=== PATIENT | male | born 1960 | race Caucasian/White ===

== ENCOUNTER 2017-06-12 18:22 | Inpatient (IN) | payer OTHER ==
[~2017-06-12] VITALS: Ht 182.9 cm; Wt 173.0 kg
[2017-06-12 20:39] LABS: BASOPHIL % 0.2 % (0-2); PLATELET COUNT 282 x10^3mcL (130-400)
[2017-06-12 20:40] LABS: RED CELL DISTRIBUTION WIDTH 15.1 % (11.5-14.5)
[2017-06-12 21:22] LABS: ALBUMIN 3.5 g/dL (3.4-5.0); ALKALINE PHOSPHATASE 105 U/L (46-116); ALT/SGPT 33 U/L (16-63); AST/SGOT 23 U/L (15-37); BILIRUBIN TOTAL 0.62 mg/dL (0.20-1.00); CALCIUM 9.7 mg/dL (8.5-10.1); CARBON DIOXIDE 32.1 mmol/L (21-32); CHLORIDE SERUM 100 mmol/L (98-107); CREATININE SERUM 1.1 mg/dL (0.7-1.3); FREE T4 1.17 ng/dL (0.76-1.46); GFR1 > 60 mL/min; GLUCOSE SERUM 132 mg/dL (74-106); LIPASE 153 IU/L (73-393); MAGNESIUM 2.3 mg/dL (1.8-2.4); POTASSIUM SERUM 3.6 mmol/L (3.5-5.1); SODIUM SERUM 138 mmol/L (136-145); TOTAL PROTEIN, SERUM 7.6 g/dL (6.4-8.2)
[2017-06-12 22:50] LABS: microscopic required? NO
[2017-06-12 23:07] LABS: urine erythrocyte NEGATIVE (NEGATIVE)
[2017-06-12 23:16] LABS: AMPHETAMINE QUAL UR NONE DETECTED (NEG <=1000)
[2017-06-12 23:27] VITALS: BP 133/96
[2017-06-12] MEDS ORDERED: LASIX40 MG (23:40)
[2017-06-12 23:41] VITALS: BP 133/96
[2017-06-12] MEDS ORDERED: HYDROCHLOROTHIA25 MG PO (23:42)
[2017-06-12 23:43] LABS: CHOLESTEROL/HDL RATIO 3.1
[2017-06-12] MEDS ORDERED: METFORMIN HCL500 MG (23:43)
[2017-06-12 23:47] LABS: T3 TOTAL 1.18 ng/mL
[2017-06-12 23:49] LABS: FREE T4 1.22 ng/dL (0.76-1.46); FREE THYROXINE INDEX 3.3 ug/dL (1.4-4.5); T4(THYROXINE) 9.7 ug/dL (4.7-13.3)
[2017-06-12] MEDS ORDERED: LOSARTAN POTASS25 M1 PO (23:49)
[2017-06-12] MEDS ORDERED: ALLOPURINOL100 MG (23:51)
[2017-06-13 05:58] VITALS: BP 117/72
[2017-06-13 07:27] LABS: BASOPHIL % 0.4 % (0-2); PLATELET COUNT 283 x10^3mcL (130-400)
[2017-06-13 07:28] LABS: RED CELL DISTRIBUTION WIDTH 15.1 % (11.5-14.5)
[2017-06-13 07:44] LABS: CALCIUM 8.8 mg/dL (8.5-10.1); CHLORIDE SERUM 103 mmol/L (98-107); GFR1 > 60 mL/min; GLUCOSE SERUM 133 mg/dL (74-106); POTASSIUM SERUM 3.6 mmol/L (3.5-5.1); SODIUM SERUM 140 mmol/L (136-145)
[2017-06-13 09:41] VITALS: BP 127/85
[2017-06-13 14:05] VITALS: BP 118/70
[2017-06-13 17:19] VITALS: BP 140/96
[2017-06-13 18:55] VITALS: BP 128/78
[2017-06-13 21:27] VITALS: BP 138/81
[2017-06-14 05:52] VITALS: BP 111/67
[2017-06-14 06:35] LABS: BASOPHIL % 0.5 % (0-2); PLATELET COUNT 248 x10^3mcL (130-400)
[2017-06-14 06:39] LABS: RED CELL DISTRIBUTION WIDTH 15.2 % (11.5-14.5)
[2017-06-14 10:40] VITALS: BP 91/51
[2017-06-14 13:07] VITALS: BP 133/89
[2017-06-14 17:49] VITALS: BP 138/90
[2017-06-14 20:59] VITALS: BP 134/80
[2017-06-15 04:57] VITALS: BP 114/57
[2017-06-15 06:16] LABS: BASOPHIL % 0.6 % (0-2); PLATELET COUNT 245 x10^3mcL (130-400)
[2017-06-15 06:54] LABS: RED CELL DISTRIBUTION WIDTH 14.7 % (11.5-14.5)
[2017-06-15 09:37] VITALS: BP 129/74; BP 98/49
[2017-06-15 13:11] VITALS: BP 129/74
[2017-06-15] MEDS ORDERED: LASIX40 MG PO (13:14)
[2017-06-15 14:00] VITALS: BP 134/84
== END 2017-06-15 14:37 | disposition home or self-care (01) | DRG 309 ==
LOC: ED 18:22 → DU 22:10
PROVIDERS: Emergency Medicine; Family Medicine; ADMIT Family Medicine Sports Medicine
DX: I49.5 Sick sinus syndrome (principal); E87.2 Acidosis; D68.69 Other thrombophilia; Z68.43 Body mass index [BMI] 50.0-59.9, adult; R00.1 Bradycardia, unspecified; R55 Syncope and collapse; D72.829 Elevated white blood cell count, unspecified; E11.9 Type 2 diabetes mellitus without complications; I10 Essential (primary) hypertension; M10.9 Gout, unspecified; E66.01 Morbid (severe) obesity due to excess calories
CPT/HCPCS: 82962; 83880; 84439; 97110-GP; 97116-GP; 97530-GP; J1885; J7030; J8597; Q0092

== ENCOUNTER 2018-01-06 16:38 | Inpatient (IN) | payer OTHER ==
[~2018-01-06] VITALS: Ht 182.9 cm; Wt 134.9 kg
[~2018-01-06 16:38] MED LIST: ALLOPURINOL100 MG; HYDROCHLOROTHIA25 MG PO; LASIX40 MG; LASIX40 MG PO; LOSARTAN POTASS25 M1 PO; METFORMIN HCL500 MG
[2018-01-06 16:45] VITALS: Ht 182.9 cm; Wt 134.9 kg
[2018-01-06 17:25] LABS: BASOPHIL % 0.4 % (0-2); PLATELET COUNT 289 x10^3mcL (130-400)
[2018-01-06 17:31] LABS: RED CELL DISTRIBUTION WIDTH 15.4 % (11.5-14.5)
[2018-01-06 17:32] LABS: CARBON DIOXIDE 24.2 mmol/L (21-32); CHLORIDE SERUM 105 mmol/L (98-107); CREATININE SERUM 0.8 mg/dL (0.7-1.3); GFR1 > 60 mL/min; GLUCOSE SERUM 98 mg/dL (74-106); POTASSIUM SERUM 4.1 mmol/L (3.5-5.1); SODIUM SERUM 141 mmol/L (136-145)
[2018-01-06 17:37] LABS: ALKALINE PHOSPHATASE 152 U/L (46-116); ALT/SGPT 40 U/L (16-63); AST/SGOT 23 U/L (15-37); BILIRUBIN TOTAL 0.5 mg/dL (0.20-1.00)
[2018-01-06 17:38] LABS: ALBUMIN 3.3 g/dL (3.4-5.0)
[2018-01-06] MEDS ORDERED: POTASSIUM CHLO10 MEQ PO (17:54)
[2018-01-06] MEDS ORDERED: PRILOSEC OTC20 M1 PO (17:55)
[2018-01-06] MEDS ORDERED: ALLOPURINOL300 M1 PO (17:55)
[2018-01-06 18:11] LABS: AMPHETAMINE QUAL UR NONE DETECTED (See below)
[2018-01-06 18:52] LABS: microscopic required? NO
[2018-01-06 19:00] LABS: urine erythrocyte NEGATIVE (NEGATIVE)
[2018-01-06 19:14] LABS: MAGNESIUM 1.9 mg/dL (1.8-2.4); PHOSPHOROUS 3.4 mg/dL (2.5-4.9)
[2018-01-06 19:17] LABS: CHOLESTEROL/HDL RATIO 2.5
[2018-01-06 19:20] LABS: T3 TOTAL 1.24 ng/mL
[2018-01-06 19:23] LABS: FREE T4 1.16 ng/dL (0.76-1.46); FREE THYROXINE INDEX 2.6 ug/dL (1.4-4.5)
[2018-01-06] MEDS ORDERED: VITAMIN E400 UNIT PO (19:47)
[2018-01-06] MEDS ORDERED: FERROUS SULFAT325 M2 PO (19:48)
[2018-01-06] MEDS ORDERED: VITAMIN C500 M6 PO (19:48)
[2018-01-06 19:49] VITALS: BP 130/90
[2018-01-07 05:41] VITALS: BP 113/72
[2018-01-07 06:03] LABS: BASOPHIL % 0.8 % (0-2); PLATELET COUNT 236 x10^3mcL (130-400)
[2018-01-07 06:25] LABS: CALCIUM 9.3 mg/dL (8.5-10.1); CARBON DIOXIDE 25.8 mmol/L (21-32); CHLORIDE SERUM 109 mmol/L (98-107); CREATININE SERUM 0.8 mg/dL (0.7-1.3); GFR1 > 60 mL/min; GLUCOSE SERUM 88 mg/dL (74-106); MAGNESIUM 1.8 mg/dL (1.8-2.4); PHOSPHOROUS 3.7 mg/dL (2.5-4.9); SODIUM SERUM 144 mmol/L (136-145)
[2018-01-07 06:47] LABS: RED CELL DISTRIBUTION WIDTH 14.8 % (11.5-14.5)
[2018-01-07 09:16] VITALS: BP 134/78
[2018-01-07 09:30] VITALS: BP 119/82
[2018-01-07 12:41] VITALS: BP 117/78
[2018-01-07] MEDS ORDERED: MECLIZINE HCL12.5 MG PO (13:05)
[2018-01-07 13:31] VITALS: BP 117/78
[2018-01-07] MEDS ORDERED: OMEPRAZOLE20 M3 PO (16:15)
[2018-01-07] MEDS ORDERED: IBUPROFEN400 MG PO (16:25)
[2018-01-07 17:40] VITALS: BP 139/84
== END 2018-01-07 18:23 | disposition home or self-care (01) | DRG 205 ==
LOC: ED 16:38 → DU 18:23
PROVIDERS: Emergency Medicine; Family Medicine
DX: M94.0 Chondrocostal junction syndrome [Tietze] (principal); N17.0 Acute kidney failure with tubular necrosis; E44.1 Mild protein-calorie malnutrition; Z68.41 Body mass index [BMI] 40.0-44.9, adult; G90.8 Other disorders of autonomic nervous system; I10 Essential (primary) hypertension; G47.33 Obstructive sleep apnea (adult) (pediatric); R74.0 Nonspecific elevation of levels of transaminase and lactic acid dehydrogenase [LDH]; E66.01 Morbid (severe) obesity due to excess calories; Z98.84 Bariatric surgery status; E04.1 Nontoxic single thyroid nodule; D72.829 Elevated white blood cell count, unspecified
CPT/HCPCS: 82962; 83880; 84439; J7030; Q0092

== ENCOUNTER 2018-04-24 21:18 | Emergency (ER) | payer OTHER ==
[~2018-04-24] VITALS: Ht 182.9 cm; Wt 128.6 kg
[~2018-04-24 21:18] MED LIST changes: +ALLOPURINOL300 M1 PO; +FERROUS SULFAT325 M2 PO; +IBUPROFEN400 MG PO; +MECLIZINE HCL12.5 MG PO; +OMEPRAZOLE20 M3 PO; +POTASSIUM CHLO10 MEQ PO; +PRILOSEC OTC20 M1 PO; +VITAMIN C500 M6 PO; +VITAMIN E400 UNIT PO
[2018-04-24 22:19] VITALS: BP 112/77
[2018-04-24 23:25] LABS: BASOPHIL % 0.2 % (0-2); PLATELET COUNT 280 x10^3mcL (130-400); RED CELL DISTRIBUTION WIDTH 13.8 % (11.5-14.5)
[2018-04-24 23:35] LABS: ALKALINE PHOSPHATASE 129 U/L (46-116); ALT/SGPT 23 U/L (16-63); AST/SGOT 18 U/L (15-37); BILIRUBIN TOTAL 0.6 mg/dL (0.20-1.00); CARBON DIOXIDE 25.4 mmol/L (21-32); CHLORIDE SERUM 101 mmol/L (98-107); CREATININE SERUM 0.9 mg/dL (0.7-1.3); GFR1 > 60 mL/min; GLUCOSE SERUM 97 mg/dL (74-106); SODIUM SERUM 136 mmol/L (136-145); TOTAL PROTEIN, SERUM 7.3 g/dL (6.4-8.2); URIC ACID 4.2 mg/dL (3.5-7.2)
[2018-04-24 23:37] LABS: ALBUMIN 3.2 g/dL (3.4-5.0)
[2018-04-24 23:38] LABS: CALCIUM 5.6 mg/dL (8.5-10.1)
[2018-04-26] MEDS ORDERED: COLACE100 MG PO (11:58)
[2018-04-26] MEDS ORDERED: NORCO1 TA2 PO (11:58)
== END 2018-04-25 00:19 | disposition home or self-care (01) ==
LOC: ED 21:18
PROVIDERS: Emergency Medicine
DX: L03.114 Cellulitis of left upper limb (principal); E83.51 Hypocalcemia; Z98.890 Other specified postprocedural states; I10 Essential (primary) hypertension
CPT/HCPCS: 36415; A4570

== ENCOUNTER 2018-04-26 09:02 | Inpatient (IN) | payer OTHER ==
[~2018-04-26] VITALS: Ht 182.9 cm; Wt 128.0 kg
[2018-04-26 09:57] LABS: ALKALINE PHOSPHATASE 119 U/L (46-116); ALT/SGPT 19 U/L (16-63); AST/SGOT 14 U/L (15-37); BILIRUBIN TOTAL 0.7 mg/dL (0.20-1.00); CARBON DIOXIDE 23.4 mmol/L (21-32); CREATININE SERUM 0.9 mg/dL (0.7-1.3); GFR1 > 60 mL/min; GLUCOSE SERUM 107 mg/dL (74-106); TOTAL PROTEIN, SERUM 7.3 g/dL (6.4-8.2)
[2018-04-26 10:00] LABS: CALCIUM 5.8 mg/dL (8.5-10.1)
[2018-04-26 10:02] LABS: CHLORIDE SERUM 102 mmol/L (98-107); POTASSIUM SERUM 3.8 mmol/L (3.5-5.1); SODIUM SERUM 135 mmol/L (136-145)
[2018-04-26 10:11] LABS: BASOPHIL % 0.5 % (0-2); PLATELET COUNT 303 x10^3mcL (130-400); RED CELL DISTRIBUTION WIDTH 13.6 % (11.5-14.5)
[2018-04-26] MEDS ORDERED: NORCO1 TA2 PO (11:58)
[2018-04-26] MEDS ORDERED: COLACE100 MG PO (11:58)
[2018-04-26 13:25] VITALS: BP 116/79
[2018-04-26 16:15] VITALS: BP 106/70
[2018-04-26 20:52] VITALS: BP 92/60
[2018-04-27 05:41] VITALS: BP 102/69
[2018-04-27 09:16] VITALS: BP 98/55
[2018-04-27 16:28] VITALS: BP 109/64
[2018-04-27 21:07] VITALS: BP 101/65
[2018-04-28 05:39] VITALS: BP 107/65
[2018-04-28 06:31] LABS: CALCIUM 6.9 mg/dL (8.5-10.1); CARBON DIOXIDE 23.9 mmol/L (21-32); CHLORIDE SERUM 105 mmol/L (98-107); CREATININE SERUM 0.9 mg/dL (0.7-1.3); GFR1 > 60 mL/min; GLUCOSE SERUM 217 mg/dL (74-106); MAGNESIUM 2.5 mg/dL (1.8-2.4); POTASSIUM SERUM 4.6 mmol/L (3.5-5.1); SODIUM SERUM 139 mmol/L (136-145); URIC ACID 3.7 mg/dL (3.5-7.2)
[2018-04-28 07:17] LABS: BASOPHIL % 0.1 % (0-2); PLATELET COUNT 304 x10^3mcL (130-400); RED CELL DISTRIBUTION WIDTH 13.7 % (11.5-14.5)
[2018-04-28 08:40] VITALS: BP 105/73
[2018-04-28 16:13] VITALS: BP 105/69
[2018-04-28 20:25] VITALS: BP 123/83
[2018-04-29 05:33] VITALS: BP 111/71
[2018-04-29 05:56] LABS: CALCIUM 7.1 mg/dL (8.5-10.1); CARBON DIOXIDE 25.5 mmol/L (21-32); CHLORIDE SERUM 104 mmol/L (98-107); CREATININE SERUM 0.9 mg/dL (0.7-1.3); GFR1 > 60 mL/min; GLUCOSE SERUM 153 mg/dL (74-106); MAGNESIUM 2.6 mg/dL (1.8-2.4); POTASSIUM SERUM 4.1 mmol/L (3.5-5.1); SODIUM SERUM 137 mmol/L (136-145)
[2018-04-29 08:24] VITALS: BP 105/66
[2018-04-29 08:24] LABS: BASOPHIL % 0.2 % (0-2); PLATELET COUNT 360 x10^3mcL (130-400); RED CELL DISTRIBUTION WIDTH 12.9 % (11.5-14.5)
[2018-04-29 09:05] LABS: RHEUMATOID ARTHRITIS FACTOR 20.3 IU/mL (0.0-13.9)
[2018-04-29 17:06] VITALS: BP 120/80
[2018-04-29 21:16] VITALS: BP 119/87
[2018-04-30 05:54] VITALS: BP 112/68
[2018-04-30 07:59] VITALS: BP 111/51
[2018-04-30] MEDS ORDERED: CLINDAMYCIN HC300 MG PO (09:05)
[2018-04-30] MEDS ORDERED: PREDNISONE20 MG PO (09:05)
[2018-04-30] MEDS ORDERED: TYLENOL WITH CO1 TA2 PO (09:06)
[2018-04-30 09:31] VITALS: BP 111/51
[2018-04-30 19:05] LABS: COMPLEMENT C3 167 mg/dL (82-167); COMPLEMENT C4 45 mg/dL (14-44)
== END 2018-04-30 11:36 | disposition home or self-care (01) | DRG 546 ==
LOC: ED 09:02 → MU 11:43
PROVIDERS: Internal Medicine Pulmonary Disease; Specialist
DX: M06.9 Rheumatoid arthritis, unspecified (principal); L03.114 Cellulitis of left upper limb; I10 Essential (primary) hypertension; M10.9 Gout, unspecified; E89.0 Postprocedural hypothyroidism; Z98.84 Bariatric surgery status; Z85.850 Personal history of malignant neoplasm of thyroid
CPT/HCPCS: 86431; J1644; J1885; J2405; J2543; J2920; J3010; J3490; J7030; J7050; Q0092; Q9967

== ENCOUNTER 2018-07-06 22:22 | Emergency (ER) | payer OTHER ==
[~2018-07-06] VITALS: Ht 182.9 cm; Wt 129.7 kg
[~2018-07-06 22:22] MED LIST changes: +CLINDAMYCIN HC300 MG PO; +COLACE100 MG PO; +NORCO1 TA2 PO; +PREDNISONE20 MG PO; +TYLENOL WITH CO1 TA2 PO
[2018-07-06 22:36] VITALS: Ht 182.9 cm; Wt 129.7 kg
[2018-07-07 01:20] LABS: CALCIUM 8.7 mg/dL (8.5-10.1); CARBON DIOXIDE 29.7 mmol/L (21-32); CHLORIDE SERUM 101 mmol/L (98-107); CREATININE SERUM 1.1 mg/dL (0.7-1.3); GFR1 > 60 mL/min; GLUCOSE SERUM 157 mg/dL (74-106); POTASSIUM SERUM 4.5 mmol/L (3.5-5.1); SODIUM SERUM 138 mmol/L (136-145)
[2018-07-07 01:22] LABS: BASOPHIL % 0.6 % (0-2)
[2018-07-07 01:23] LABS: PLATELET COUNT 82 x10^3mcL (130-400); RED CELL DISTRIBUTION WIDTH 16.3 % (11.5-14.5)
[2018-07-07 01:24] LABS: ALBUMIN 3.8 g/dL (3.4-5.0); ALKALINE PHOSPHATASE 123 U/L (46-116); ALT/SGPT 24 U/L (16-63); AST/SGOT 15 U/L (15-37); BILIRUBIN TOTAL 0.83 mg/dL (0.20-1.00); URIC ACID 4.2 mg/dL (3.5-7.2)
[2018-07-07 04:00] VITALS: BP 136/81
== END 2018-07-07 04:00 | disposition home or self-care (01) ==
LOC: ED 22:22
PROVIDERS: Emergency Medicine
DX: M06.842 Other specified rheumatoid arthritis, left hand (principal); I10 Essential (primary) hypertension; Z98.890 Other specified postprocedural states
CPT/HCPCS: 82962; J2270; J2405; J2930; J7040

== ENCOUNTER 2019-01-02 08:51 | Inpatient (IN) | payer OTHER ==
[~2019-01-02] VITALS: Ht 182.9 cm; Wt 127.0 kg
[2019-01-02 09:21] VITALS: BP 130/85
[2019-01-02] MEDS ORDERED: LEVOTHYROXIN0.175 MG PO (15:20)
[2019-01-02] MEDS ORDERED: ALLOPURINOL100 MG PO (15:22)
[2019-01-02] MEDS ORDERED: SYNTHROID0.2 MG PO (15:22)
[2019-01-02] MEDS ORDERED: NATURE'S BLEND F1 MG PO (15:22)
[2019-01-02] MEDS ORDERED: BANOPHEN25 M2 PO (15:23)
--- NOTE | 2019-01-02 16:25 | NUR ---
PT WAS RECEIVED BY PRIMARY NURSE ZHAO FROM PACU VIA [facility] AT 1613H. PT SEEN LYING IN BED, AAOX4. DENIES HEADACHE/DIZZINESS. ABLE TO FOLLOW COMMANDS. NO SOB NOTED. LUNG SOUNDS CTA. DENIES CHEST PAIN/PRESSURE. DENIES ABDOMINAL DISCOMFORT. W/ SURGICAL DRESSING ON THE LEFT KNEE, POLAR ICE IN PLACE. PT ABLE TO MOVE ALL EXTREMITIES BUT W/ LIMITED ROM ON LLE. STATED THAT HE HAS MILD NUMBNESS ON THE LEFT KNEE. W/ TAJIK 16 MAHER CATHETER DRAINING W/ YELLOW COLORED URINE. SIDE RAILS UPX2. CALL LIGHT ON REACH. HOB ELEVATED AT 30 DEG. SIDE RAILS UPX2. CALL LIGHT ON REACH. ENDORSED TO PRIMARY NURSE ZHAO FOR CONTINUITY OF CARE
[2019-01-02 16:45] VITALS: BP 129/82
[2019-01-02 16:48] VITALS: Ht 182.9 cm; Wt 127.0 kg
--- NOTE | 2019-01-02 18:41 | NUR ---
PATIENT REMAINS SITTING UP IN BED WITH POLAR ICE ON LEFT KNEE, AND SCD'S ON BLE ORDERED. IVF INFUSING WELL TO LEFT F/A, IV SITE PATENT NO SWELLING OR REDNESS NOTED. PATIENT IS VERY TALKATIVE. FAMILY MEMBERS AT BEDSIDE. NO ACUTE DISTRESS NOTED. CALL LIGHT WITHIN REACH. MAHER CATH DRAINING YELLOW URINE.
--- NOTE | 2019-01-02 19:15 | NUR ---
CARE ASSUMED FROM OUTGOING SENIOR GRADUATE ADVISOR. PT RESTING COMFORTABLY IN BED. FAMILY AT BEDSIDE. NO ACUTE DISTRESS NOTED ON RA. IV PATENT AND INTACT RUNNING FLUIDS PER EMAR. MILD PAIN TO L KNEE, DOES NOT REQUIRE PAIN MEDICATION AT THIS TIME. MAHER PATENT AND INTACT WITH YELLOW URINE OUTPUT. POLAR CARE CUBE APPLIED TO LEFT KNEE. DRESSING CDI. SENSATION AND PULSE TO LLE PRESENT. BED IN LOWEST POSITION. SIDE RAILS UPX2. CALL LIGHT WITHIN REACH. WILL CONTINUE TO MONITOR.
[2019-01-02 21:31] VITALS: BP 117/72
--- NOTE | 2019-01-02 22:23 | NUR ---
PT RESTING COMFORTABLY IN BED. MEDICATED L KNEE PAIN PER EMAR. REFILLED POLAR CARE CUBE WITH ICE. L KNEE DRESSING CDI. SENSATIONS AND PULSES PALPABLE TO LLE. 325ML YELLOW OUTPUT EMPTIED FROM MAHER. IV PATENT AND INTACT RUNNING FLUIDS PER EMAR. BED IN LOWEST POSITION. SIDE RAILS UPX2. CALL LIGHT WITHIN REACH. WILL CONTINUE TO MONITOR.
--- NOTE | 2019-01-03 00:35 | NUR ---
PT RESTING COMFORTABLY IN BED. WILL TRY TO SLEEP AT THIS TIME. NO ACUTE DISTRESS NOTED. EVEN AND UNLABORED RESPIRATIONS ON RA. IV PATENT AND INTACT RUNNING FLUIDS PER EMAR. MAHER PATENT AND INTACT OUTPUTING YELLOW URINE. POLAR CARE CUBE AND BRACE IN PLACE ON LEFT KNEE. DRESSING CDI. SENSATION AND PULSES PRESENT ON LLE. BED IN LOWEST POSITION. SIDE RAILS UPX2. CALL LIGHT WITHIN REACH. WILL CONTINUE TO MONITOR.
--- NOTE | 2019-01-03 02:31 | NUR ---
PT RESTING COMFORTABLY IN BED. UNABLE TO FALL SLEEP. NO ACUTE DISTRESS NOTED. EVEN AND UNLABORED RESPIRATIONS ON RA. IV PATENT AND INTACT RUNNING FLUIDS PER EMAR. L KNEE DRESSING CDI. SENSATION AND PULSES PRESENT. POLAR CARE CUBE REFILLED WITH ICE AND IN PLACE. EMPTIED 275ML YELLOW URINE FROM MAHER. BED IN LOWEST POSITION. SIDE RAILS UP X2. CALL LIGHT WITHIN REACH. WILL CONTINUE TO MONITOR.
[2019-01-03 06:28] VITALS: BP 97/63
--- NOTE | 2019-01-03 06:28 | NUR ---
ALL NEEDS TENDED TO AND MET. ALL SCHEDULED MEDICATIONS GIVEN. PAIN TO LEFT KNEE MEDICATED PER EMAR. GUNNAR D'RUPINDER. 200ML YELLOW URINE EMPTIED. PT TOLERATED WELL. URINAL AT BEDSIDE. INSTRUCTED PT TO LET US KNOW WHEN HE NEEDS TO URINATE. POLAR CARE CUBE IN USE TO LEFT KNEE. DRESSING CDI. SENSATIONS AND PULSES PRESENT. BED IN LOWEST POSITION. SIDE RAILS UPX2. CALL LIGHT WITHIN REACH. WILL ENDORSE TO ONCOMING SHIFT.
[2019-01-03 06:36] LABS: BASOPHIL % 0.2 % (0-2); PLATELET COUNT 217 x10^3mcL (130-400); RED CELL DISTRIBUTION WIDTH 14.4 % (11.5-14.5)
[2019-01-03 06:55] LABS: CALCIUM 8.7 mg/dL (8.5-10.1); CARBON DIOXIDE 27.4 mmol/L (21-32); CHLORIDE SERUM 104 mmol/L (98-107); CREATININE SERUM 0.9 mg/dL (0.7-1.3); GFR1 > 60 mL/min; GLUCOSE SERUM 133 mg/dL (74-106); POTASSIUM SERUM 4.8 mmol/L (3.5-5.1); SODIUM SERUM 139 mmol/L (136-145)
--- NOTE | 2019-01-03 07:22 | NUR ---
RECEIVED CALL FROM LAB, WBC: 14.5. WILL ENDORSE TO ONCOMING RN.
[2019-01-03 08:57] VITALS: BP 104/71
--- NOTE | 2019-01-03 09:59 | NUR ---
PT WAS ABLE TO GET UP WITH PT THIS MORNING AND AMBULATE BEFORE REPORTING LIGHTHEADEDNESS AND DIZZINESS. PT WAS TAKEN BACK TO BED SAFELY, VITALS WERE ASSESSED BY THE PT. PT WAS GIVEN TIME TO REST AND VITALS WERE ASSESSED AGAIN, BP FOUND TO BE 90/58. PT REPORTED THAT DIZZINESS WAS GONE AND HE WAS FEELING BETTER AND WOULD LIKE TO TAKE A NAP. AT THIS TIME PT REPORTS FEELING THOUGH HE WILL VOMIT. WILL ASSESS VITALS AND MEDICATE FOR NAUSEA, AND CONTINUE TO MONITOR.
--- NOTE | 2019-01-03 10:11 | NUR ---
VITALS ASSESSED, BP 79/43, 02 SAT 92, HR 65. PT DENIED CP OR SOB, STILL FEELING DIZZY. PT BP RE-CHECKED ON OTHER ARM, FOUND TO BE 85/43 (53), O2 SAT 94, AND HR 62. PROVIDER PAGED, WILL CONTINUE TO MONITOR.
--- NOTE | 2019-01-03 11:29 | NUR ---
PT BP RE-CHECKED, 85/49 (61) AT THIS TIME, PT DENIED CP, SOB, OR NAUSEA. ALERT AND ORIENTED X 4, WILL CONTINUE TO MONITOR. PROVIDER CALLED, NO ANSWER AT THIS TIME.
--- NOTE | 2019-01-03 12:01 | NUR ---
CALL MADE TO DR. ARRIAGA AT THIS TIME, NO ANSWER, UNABLE TO LEAVE A MESSAGE.
[2019-01-03 16:51] VITALS: BP 89/54
--- NOTE | 2019-01-03 19:38 | NUR ---
REPORT GIVEN TO CERTIFIED SUBSTANCE ABUSE COUNSELOR NURSE CARE ENDORSED
--- NOTE | 2019-01-03 19:40 | NUR ---
RECIEVED PT RESTING IN BED WITH FAMILY AT BEDSIDE, PT HAS NO SIGNS OF ACUTE DISTRESS AT THIS TIME, PT REPORTS NO PAIN OR SOB, ASSESSMENT PERFORMED AT THIS TIME, IV TO THE LEFT FA INFUSING NS AT 125ML/HR, ICE PACK TO PT LEFT LEG REFILLED WITH NEW ICE. SAFETY PRECAUTIONS IN PLACE WILL CONTINUE TO MONITOR.
[2019-01-03 22:10] VITALS: BP 104/55
--- NOTE | 2019-01-03 22:40 | NUR ---
PT COMPLAINING OF PAIN, NAUSEA, AND LEE PT MEDICATED WITH PRN DILAUDID, TYLENOL AND ZOFRAN, WILL CONTINUE TO REASSESS ,SAFETY PRECAUTIONS IN PLACE ALL NEEDS ATTENDED TO, WILL CONTINUE TO MONITOR
--- NOTE | 2019-01-03 23:50 | NUR ---
REFILLED ICE PACK WITH ICE, ALL NEEDS ATTENDED TO, SAFETY PRECAUTIONS IN PLACE WILL CONTINUE TO MONITOR
--- NOTE | 2019-01-04 02:38 | NUR ---
PT SLEEPING COMFORTABLY WITH NO ACUTE DISTRESS AT THIS TIME, RESPIRATIONS EVEN AND UNLABORED, SAFETY PRECAUTIONS IN PLACE WILL CONTIUE TO MONITOR
[2019-01-04 06:31] LABS: BASOPHIL % 0.6 % (0-2); PLATELET COUNT 173 x10^3mcL (130-400)
[2019-01-04 06:40] VITALS: BP 91/54
[2019-01-04 06:44] LABS: CALCIUM 7.4 mg/dL (8.5-10.1); CARBON DIOXIDE 29.6 mmol/L (21-32); CHLORIDE SERUM 110 mmol/L (98-107); CREATININE SERUM 0.9 mg/dL (0.7-1.3); GFR1 > 60 mL/min; GLUCOSE SERUM 90 mg/dL (74-106); POTASSIUM SERUM 4.3 mmol/L (3.5-5.1); SODIUM SERUM 145 mmol/L (136-145)
--- NOTE | 2019-01-04 07:10 | NUR ---
RECEIVED BEDSIDE REPORT FROM FIRE EQUIPMENT REPAIRER INSPECTOR NURSE. PATIENT RESTING COMFORTABLY IN BED. NO APPARENT DISTRESS OR DISCOMFORT NOTED. BREATHING EVEN AND UNLABORED. NO RESPIRATORY DISTRESS OR DISCOMFORT NOTED. ICE PACK TO LEFT KNEE IN PLACE. PATIENT DENIES CHEST PAIN AT THIS TIME. IV PATENT AND INTACT. ALL QUESTIONS AND CONCERNS ADDRESSED. ALL NEEDS ATTENDED TO. WILL CONTINUE TO MONITOR
[2019-01-04 07:14] LABS: RED CELL DISTRIBUTION WIDTH 14.9 % (11.5-14.5)
[2019-01-04 08:25] VITALS: BP 91/55
--- NOTE | 2019-01-04 12:58 | NUR ---
SPOKE TO DR ARRIAGA REGARDING PATIENTS BLOOD PRESSURE WHILE WORKING WITH PT. PER DR ARRIAGA, TELEPHONE ORDER 1L BOLUS THEN HAVE PATIENT WORK WITH PT. TELEPHONE ORDER READ BACK, CONFIRMED, AND FOLLOWED THROUGH. SPOKE TO LAURE FROM PT AND INFORMED HIM OF PLAN OF CARE. WILL NOTIFY WHEN BOLUS IS STARTED AND WHEN BOLUS SHOULD BE COMPLETED. WILL CONTINUE TO MONITOR
--- NOTE | 2019-01-04 13:17 | NUR ---
BOLUS INITIATED AT THIS TIME. WILL CONTINUE TO MONITOR
--- NOTE | 2019-01-04 14:15 | NUR ---
PT AT BEDSIDE WORKING WITH PATIENT. PATIENT DENIES DIZZINESS AT THIS TIME. BP 113/70. WILL CONTINUE TO MONITOR
--- NOTE | 2019-01-04 15:44 | NUR ---
PATIENT C/O 6/10 KNEE PAIN. PATIENT MEDICATED WITH NORCO PRN AT THIS TIME. PATIENT TOLERATED WELL. NO APPARENT DISTRESS OR DISCOMFORT NOTED. ALL NEEDS ATTENDED TO
--- NOTE | 2019-01-04 17:51 | NUR ---
PATIENT SITTING UP IN BED EATING DINNER AT THIS TIME. PATIENT TOLERATING DIET WELL. NO APPARENT DISTRESS OR DISCOMFORT NOTED. FAMILY AT BEDSIDE AT THIS TIME. ALL NEEDS ATTENDED TO. WILL CONTINUE TO MONITOR
[2019-01-04 18:08] VITALS: BP 98/56
--- NOTE | 2019-01-04 18:35 | NUR ---
PATIENT RESTING COMFORTABLY IN BED AT THIS TIME. NO APPARENT DISTRESS OR DISCOMFORT NOTED. IV PATENT AND INTACT. ICE PACK TO LEFT KNEE REFILLED. ALL QUESTIONS AND CONCERNS ADDRESSED. ALL NEEDS ATTENDED TO. SAFETY PRECAUTIONS MAINTAINED. FAMILY AT BEDSIDE. WILL ENDORSE ALL CARE TO PICKER NURSE
--- NOTE | 2019-01-04 19:59 | NUR ---
RECEIVED IN BED ALERT ORIENTED VERBALIZED NEEDS ASKING FOR TYLENOL FOR HEADACHE 5/10 PER ASSESSMENT, DENIES DIZZINESS, NO DISTRESS LUNGS CTA, IVF NS @ 125CC/HR IV ACCESS LFA PATENT NON INFIL, SURG DRESSING TO LT KNEE WITH INTACT DRESSING, ABLE TO STAND WITH THE WALKER, SHIFT ASSESSMENT DONE, CALL LIGHT AT REACH, ATTENDED NEEDS, CONT TO MONITOR.
--- NOTE | 2019-01-04 20:39 | NUR ---
SEEN BY DR CORINA PLASCENCIA, DISCUSSED RE DISCHARGE PLAN POSSIBLE TOMORROW POST JR. SYSTEMS ADMINISTRATOR WORKOUT, AWAITING FOR ORDERS.
[2019-01-04] MEDS ORDERED: ECO81 PO (20:41)
[2019-01-04] MEDS ORDERED: ACETAMINOPHEN-H1 TA1 PO (20:41)
[2019-01-04] MEDS ORDERED: COL100 PO (20:42)
[2019-01-04 20:49] VITALS: BP 112/70
--- NOTE | 2019-01-05 01:58 | NUR ---
PATIENT ASLEEP NO S/SX OF PAIN OR DISCOMFORTS, IVF INFUSING WELL, VISUAL CHECKED AT INTERVALS.
[2019-01-05 05:00] VITALS: BP 149/96
[2019-01-05 06:18] LABS: BASOPHIL % 0.3 % (0-2); PLATELET COUNT 173 x10^3mcL (130-400); RED CELL DISTRIBUTION WIDTH 14.6 % (11.5-14.5)
[2019-01-05 06:31] LABS: CALCIUM 7.8 mg/dL (8.5-10.1); CARBON DIOXIDE 24.9 mmol/L (21-32); CHLORIDE SERUM 112 mmol/L (98-107); CREATININE SERUM 0.8 mg/dL (0.7-1.3); GFR1 > 60 mL/min; GLUCOSE SERUM 90 mg/dL (74-106); POTASSIUM SERUM 4.4 mmol/L (3.5-5.1); SODIUM SERUM 147 mmol/L (136-145)
--- NOTE | 2019-01-05 06:54 | NUR ---
NO SIGNIFICANT CHANGES, SLEPT INTERMITTENT DURING THE SHIFT, DENIES PAIN AT THIS TIME, CONT TO UTILIZED ICE PACK, DENIES PAIN, DUE MEDS GIVEN, WILL ENDORSE TO INCOMING SHIFT FOR F/U CARE.
--- NOTE | 2019-01-05 07:20 | NUR ---
RECEIVED PATIENT FROM TOOL DISTRIBUTOR NURSE. PATIENT IS AWAKE, ALERT AND ORIENTED. ON ROOM AIR, BREATHING EVEN AND UNLABORED, DENIES SOB. POLAR ICE NOTED TO LEFT KNEE, DRESSING CDI. IV NOTED TO LFA, IVF INFUSING WELL ORDERED, NO S/S ERYTHEMA AT SITE. CALL LIGHT WITHIN EASY REACH. WILL CONTINUE PLAN OF CARE.
[2019-01-05 07:35] VITALS: BP 120/59
--- NOTE | 2019-01-05 08:39 | NUR ---
PHYSICAL THERAPY DAILY NOTES CO-SIGN All documentation done by the Pediatric Nurse Practitioner for 01/05/19 has been reviewed. I agree with the documentation. Reviewed/Co-Signed by: Jazmin Mackay PT Documentation Done by:LAURE STUART PTA FOR 01/04/19
--- NOTE | 2019-01-05 10:37 | NUR ---
PATIENT UP AND AMBULATING WITH PT. TOLERATING WELL.
[2019-01-05 11:55] VITALS: BP 120/59
--- NOTE | 2019-01-05 12:39 | NUR ---
PATIENT DC'D HOME AT THIS TIME. AWAKE, ALERT AND ORIENTED. VSS STABLE AT TIME OF DC. NO C/O PAIN OR DISCOMFORT. ALL DC INSTRUCTIONS GIVEN TO PATIENT. ALL QUESTIONS ANSWERED AT TIME OF DC. ALL PERSONAL BELONGINGS TAKEN WITH PATIENT AT TIME OF DC. PATIENT TAKEN DOWN TO DC OFFICE BY AUTUMN RIZVI.
--- NOTE | 2019-01-05 13:54 | NUR ---
PHYSICAL THERAPY DAILY NOTES CO-SIGN All documentation done by the Hand Folder for 01/05/19 has been reviewed. I agree with the documentation. Reviewed/Co-Signed by: Jazmin Mackay PT Documentation Done by:LAURE STUART PTA
== END 2019-01-05 12:54 | disposition home or self-care (01) | DRG 470 ==
LOC: MU 08:51 → DU 10:30 → MU 16:27
PROVIDERS: ADMIT Orthopaedic Surgery
PROC: 0SRD0JZ Replacement of Left Knee Joint with Synthetic Substitute, Open Approach (ICD-10-PCS; principal; 2019-01-02 10:30)
DX: M17.12 Unilateral primary osteoarthritis, left knee (principal); I10 Essential (primary) hypertension; Z68.38 Body mass index [BMI] 38.0-38.9, adult
CPT/HCPCS: 97110-GP; 97116-GP; 97530-GP; C1713; C1776; G0378; J0690; J1100; J1170; J1885; J2270; J2405; J2704; J3010; J3490; J7030; J7120

== ENCOUNTER 2019-06-05 06:09 | Inpatient (IN) | payer OTHER ==
[2019-06-04 10:13] LABS: microscopic required? NO
[2019-06-04 10:31] LABS: urine erythrocyte NEGATIVE (NEGATIVE)
[2019-06-04 11:07] LABS: BASOPHIL % 0.7 % (0-2); PLATELET COUNT 251 x10^3mcL (130-400)
[2019-06-04 11:08] LABS: RED CELL DISTRIBUTION WIDTH 15.6 % (11.5-14.5)
[2019-06-04 12:37] LABS: ALBUMIN 3.8 g/dL (3.4-5.0); ALKALINE PHOSPHATASE 168 U/L (46-116); ALT/SGPT 27 U/L (16-63); AST/SGOT 18 U/L (15-37); BILIRUBIN TOTAL 0.6 mg/dL (0.20-1.00); CALCIUM 8.6 mg/dL (8.5-10.1); CARBON DIOXIDE 30.2 mmol/L (21-32); CHLORIDE SERUM 104 mmol/L (98-107); CREATININE SERUM 0.9 mg/dL (0.7-1.3); GFR1 > 60 mL/min; GLUCOSE SERUM 83 mg/dL (74-106); POTASSIUM SERUM 4.7 mmol/L (3.5-5.1); SODIUM SERUM 141 mmol/L (136-145); TOTAL PROTEIN, SERUM 7.6 g/dL (6.4-8.2)
[~2019-06-05] VITALS: Ht 182.9 cm; Wt 133.8 kg
[~2019-06-05 06:09] MED LIST changes: +ACETAMINOPHEN-H1 TA1 PO; +ALLOPURINOL100 MG PO; +BANOPHEN25 M2 PO; +COL100 PO; +ECO81 PO; +LEVOTHYROXIN0.175 MG PO; +NATURE'S BLEND F1 MG PO; +SYNTHROID0.2 MG PO
[2019-06-05 06:45] VITALS: BP 105/70
[2019-06-05] MEDS ORDERED: CETIRIZINE HYDR10 MG PO (07:27)
[2019-06-05] MEDS ORDERED: METHOTREXATE2.5 M2 PO (07:28)
[2019-06-05] MEDS ORDERED: ADULT MULTIVIT1 EACH PO (07:30)
[2019-06-05] MEDS ORDERED: CALCITRATE950 MG PO (07:31)
[2019-06-05] MEDS ORDERED: GOOD SENSE OMEP20 MG PO (07:31)
[2019-06-05 12:51] VITALS: BP 104/53
[2019-06-05 17:26] VITALS: BP 100/58
[2019-06-05 19:49] VITALS: BP 105/68
[2019-06-06 05:28] VITALS: BP 127/64
[2019-06-06 06:35] LABS: BASOPHIL % 0.4 % (0-2); PLATELET COUNT 177 x10^3mcL (130-400)
[2019-06-06 06:47] LABS: RED CELL DISTRIBUTION WIDTH 14.9 % (11.5-14.5)
[2019-06-06 07:05] LABS: CALCIUM 7.6 mg/dL (8.5-10.1); CARBON DIOXIDE 28.1 mmol/L (21-32); CHLORIDE SERUM 108 mmol/L (98-107); CREATININE SERUM 0.8 mg/dL (0.7-1.3); GFR1 > 60 mL/min; GLUCOSE SERUM 77 mg/dL (74-106); POTASSIUM SERUM 4.5 mmol/L (3.5-5.1); SODIUM SERUM 142 mmol/L (136-145)
[2019-06-06 09:43] VITALS: BP 139/85
[2019-06-06 14:44] VITALS: BP 131/75
[2019-06-06 17:05] VITALS: BP 144/75
[2019-06-06 20:41] VITALS: BP 132/80
[2019-06-07 04:38] VITALS: BP 131/71
[2019-06-07 06:57] LABS: BASOPHIL % 0.5 % (0-2); PLATELET COUNT 190 x10^3mcL (130-400)
[2019-06-07 07:24] LABS: CALCIUM 7.2 mg/dL (8.5-10.1); CARBON DIOXIDE 26.4 mmol/L (21-32); CHLORIDE SERUM 107 mmol/L (98-107); CREATININE SERUM 0.8 mg/dL (0.7-1.3); GFR1 > 60 mL/min; GLUCOSE SERUM 135 mg/dL (74-106); POTASSIUM SERUM 3.8 mmol/L (3.5-5.1); SODIUM SERUM 142 mmol/L (136-145)
[2019-06-07 07:49] VITALS: BP 130/79
[2019-06-07 08:48] LABS: RED CELL DISTRIBUTION WIDTH 15.3 % (11.5-14.5)
[2019-06-07 08:55] VITALS: BP 139/85
[2019-06-07 16:27] VITALS: BP 133/70
[2019-06-07 20:48] VITALS: BP 130/83
[2019-06-08 05:15] VITALS: BP 144/79
[2019-06-08 06:29] LABS: BASOPHIL % 0.5 % (0-2); PLATELET COUNT 171 x10^3mcL (130-400)
[2019-06-08 06:44] LABS: RED CELL DISTRIBUTION WIDTH 15.4 % (11.5-14.5)
[2019-06-08 06:48] LABS: CALCIUM 7.2 mg/dL (8.5-10.1); CARBON DIOXIDE 28.5 mmol/L (21-32); CHLORIDE SERUM 109 mmol/L (98-107); CREATININE SERUM 0.8 mg/dL (0.7-1.3); GFR1 > 60 mL/min; GLUCOSE SERUM 86 mg/dL (74-106); POTASSIUM SERUM 4.1 mmol/L (3.5-5.1); SODIUM SERUM 144 mmol/L (136-145)
[2019-06-08 07:38] VITALS: BP 129/77
[2019-06-08 11:54] VITALS: BP 137/88
[2019-06-08 17:06] VITALS: BP 138/87
[2019-06-08 19:53] VITALS: BP 138/87
== END 2019-06-08 20:45 | disposition home or self-care (01) | DRG 470 ==
LOC: MU 06:09
PROVIDERS: ADMIT Orthopaedic Surgery
PROC: 0SSDXZZ Reposition Left Knee Joint, External Approach (ICD-10-PCS; 2019-06-05)
PROC: 0SRC0J9 Replacement of Right Knee Joint with Synthetic Substitute, Cemented, Open Approach (ICD-10-PCS; principal; 2019-06-05 07:30)
DX: M17.11 Unilateral primary osteoarthritis, right knee (principal)
CPT/HCPCS: 97110-GP; 97116-GP; 97530-GP; C1713; C1776; G0378; J0690; J1170; J1885; J2270; J2274; J2405; J2704; J3490; J7030; J7120; Q0092; Q0163